=== PATIENT | male | born 1955 | race Caucasian/White ===

== ENCOUNTER 2017-04-28 07:08 | Day surgery (SDC) | payer OTHER | END 2017-04-28 20:05 | disposition home or self-care (01) | LOC: CIR.AMB 07:08 | DX: M24.542 Contracture, left hand (principal); S62.605 Fracture of unspecified phalanx of left ring finger; S62.60 Fracture of unspecified phalanx of finger ==